=== PATIENT | female | born 1995 | race Caucasian/White ===

== ENCOUNTER 2017-04-18 15:34 | Emergency (ER) | payer SELFPAY ==
[~2017-04-18] VITALS: Ht 170.2 cm; Wt 78.5 kg
[2017-04-18 15:55] VITALS: BP 111/70
[2017-04-18] MEDS ORDERED: Meclizine 25mg tab ORAL PRN (16:30)
--- NOTE | 2017-04-18 16:36 | Emergency Room Report ---
History of Present Illness General Chief Complaint: Headache Source: Patient Present Illness HPI 22-year-old female presents to the emergency department complaining of 6/10 in severity frontal headache and increase pressure with nasal congestion. Patient also reports chills, sore throat, intermittent dry cough and fatigue x3 days. Patient states that she is up-to-date with vaccinations a denies ill contacts. Patient also reports that she was worried today as on 2 occasions she's had an episode of dizziness which she describes as the room spinning around her that lasted several seconds. Patient states it was right after playing basketball, and after standing up while on the bus riding home. Patient denies nausea, vomiting, history of headaches, weakness, recent head trauma, tinnitus. Patient does report some right-sided ear pain and states she feels as though she needs to pop her ears. she also reports increased urinary frequency especially at nighttime denies hematuria, dysuria, or . Pt. states with the exception of basketball practice today, she has been attempting to rest and stay well hydrated. Denies rashes, abdominal pain. Denies CP, Palpitations, LOC, AMS, dizziness, Changes in Vision, Sensation, paresthesias, or a sudden severe headache. Allergies: Coded Allergies: No Known Allergies (Unverified , 04/18/17) Patient History Past Medical History: see triage record Past Surgical History: none Pertinent Family History: none Last Menstrual Period: 04/09/17 Now: No : 0 Immunizations: UTD Reviewed Nursing Documentation: PMH: Agreed, PSxH: Agreed Nursing Documentation-PMH Past Medical History: No Stated History Review of Systems All Other Systems: negative except mentioned in HPI Physical Exam Vital Signs Date Time Temp Pulse Resp B/P (MAP) Pulse Ox O2 Delivery O2 Flow Rate FiO2 04/18/17 15:28 97.9 60 18 111/70 99 Room Air Sp02 EP Interpretation: reviewed, normal General Appearance: no apparent distress, alert, GCS 15, non-toxic Head: normocephalic, atraumatic Eyes: bilateral eye normal inspection, bilateral eye PERRL ENT: hearing grossly normal, normal pharynx, no angioedema, normal voice, TMs + canals normal, uvula midline, nasal congestion - TTP to frontal sinus percussion, pharyngeal erythema, other - no tonsillar exudates Neck: full range of motion, no meningismus, supple/symm/no masses Respiratory: chest non-tender, lungs clear, normal breath sounds, speaking full sentences Cardiovascular #1: regular rate, rhythm Rectal: deferred Genitourinary: normal inspection, no CVA tenderness Musculoskeletal: back normal, gait/station normal, normal range of motion, non- tender Neurologic: alert, oriented x3, responsive, motor strength/tone normal, sensory intact, cerebellar normal, normal gait, speech normal, other - unable to illicit nysgtagmus on PE, and sacha-hallpike maneuver, negative hoffmans sign, negative rhomberg test Psychiatric: judgement/insight normal, memory normal, mood/affect normal Skin: normal color, no rash, warm/dry, well hydrated Lymphatic: no adenopathy Medical Decision Making PA Attestation Dr. Fraga is my supervising Physician whom patient management has been discussed with. Diagnostic Impression: Primary Impression: Positional vertigo Qualified Codes: H81.13 - Benign paroxysmal vertigo, bilateral Additional Impressions: Acute viral syndrome Sinus congestion ER Course 22-year-old female presents to the emergency department complaining of 6/10 in severity frontal headache and increase pressure with nasal congestion. Patient also reports chills, sore throat, intermittent dry cough and fatigue x3 days. Patient states that she is up-to-date with vaccinations a denies ill contacts. Patient also reports that she was worried today as on 2 occasions she's had an episode of dizziness which she describes as the room spinning around her that lasted several seconds. Patient states it was right after playing basketball, and after standing up while on the bus riding home. Patient denies nausea, vomiting, history of headaches, weakness, recent head trauma, tinnitus. Patient does report some right-sided ear pain and states she feels as though she needs to pop her ears. she also reports increased urinary frequency especially at nighttime denies hematuria, dysuria, or . Pt. states with the exception of basketball practice today, she has been attempting to rest and stay well hydrated. Denies rashes, abdominal pain. Denies CP, Palpitations, LOC, AMS, dizziness, Changes in Vision, Sensation, paresthesias, or a sudden severe headache. Ddx considered but are not limited to URI, pneumonia, PE, strep pharyngitis, meningitis, labrynithitis, BPPV, cranial mass. just to name a few. Vital signs: Pt. is afebrile, the remaining VS are WNL H&PE are most consistent with URI- no meningeal signs, oropharynx is not involved, no evidence of bacterial infection at this time. - no nystagmus with sacha-hallpike, does not induce vertigo, however after sitting pt. back up she had approximately 10 seconds of vertigo which resolved. no focal neurological deficits on PE. ORDERS: none required at this time, the diagnosis is clinical ED INTERVENTIONS: -Meclizine PO --PT. EDUCATION: Discussed antibiotic resistance with inappropriate prescribing of antibiotics for viral illnesses. Discussed signs and symptoms to indicate viral illness versus bacterial illness. Pt. is given strict ED precautions to return to the ED with worsening or new symptoms, otherwise follow up in 3-5 days with her PMD. DISCHARGE: At this time pt. is stable for d/c to home. Will provide printed patient care instructions, and any necessary prescriptions. Care plan and follow up instructions have been discussed with the patient prior to discharge. Labs Test 04/18/17 16:34 Urine Color Pale yellow Urine Appearance Clear Urine pH 5 (4.5-8.0) Urine Specific [place] 1.015 (1.005-1.035) Urine Protein Negative (NEGATIVE) Urine Glucose (UA) Negative (NEGATIVE) Urine Ketones Negative (NEGATIVE) Urine Occult Blood Negative (NEGATIVE) Urine Nitrite Negative (NEGATIVE) Urine Bilirubin Negative (NEGATIVE) Urine Urobilinogen Normal MG/DL (0.0-1.0) Urine Leukocyte Esterase Negative (NEGATIVE) Urine HCG, Qualitative Negative Last Vital Signs Date Time Temp Pulse Resp B/P (MAP) Pulse Ox O2 Delivery O2 Flow Rate FiO2 04/18/17 15:55 97.9 18 111/70 99 Room Air 04/18/17 15:28 60 Disposition: HOME, SELF-CARE Condition: Stable Scripts Pseudoephedrine Hcl* (NEXAFED*) 30 Mg Tablet 30 MG ORAL Q6H Y for congestion, #10 TAB Prov: Annalise Givens.AAbimbola 04/18/17 Acetaminophen* (TYLENOL EXTRA STRENGTH*) 500 Mg Tablet 500 MG ORAL Q6H Y for Mild Pain/Temp > 100.5, #20 TAB 0 Refills Prov: Annalise Givens.AAbimbola 04/18/17 Meclizine Hcl* (MECLIZINE*) 25 Mg Tablet 25 MG ORAL THREE TIMES A DAY, #12 TAB Prov: Annalise Givens 04/18/17 Patient Instructions: Upper Respiratory Infection, Adult, [id number], Vertigo , [id number] Additional Instructions: Take medications as directed. Follow up with a Primary Care Provider in 3-5 days, even if your symptoms have resolved. --Please review list of primary care clinics, if you do not already have a primary care provider Return sooner to ED if new symptoms occur, or current symptoms become worse. - Please note that this Emergency Department Report was dictated using [email or web address] receiving clerk technology software, occasionally this can lead to erroneous entry secondary to interpretation by the dictation equipment. Annalise Givens Apr 18, 2017 16:36
[2017-04-18 16:55] LABS: APPEARANCE,URINE CLEAR; KETONES,URINE NEGATIVE (NEGATIVE); LEUKOCYTE ESTERASE ,URINE NEGATIVE (NEGATIVE); NITRITE,URINE NEGATIVE (NEGATIVE); PH,URINE 5 (4.5-8.0); PROTEIN,URINE NEGATIVE (NEGATIVE); UROBILINOGEN,URINE NORMAL MG/DL (0.0-1.0)
[2017-04-18] MEDS ORDERED: TYLENOL EXTRA500 MG ORAL (17:36)
[2017-04-18] MEDS ORDERED: MECLIZINE HCL25 MG ORAL (17:36)
[2017-04-18] MEDS ORDERED: NEXAFED30 MG ORAL (17:36)
[2017-04-18 17:50] VITALS: BP 120/77
== END 2017-04-18 17:50 | disposition home or self-care (01) ==
LOC: EDBD 15:34 → EMR 16:10
DX: R42 Dizziness and giddiness (principal); B34.9 Viral infection, unspecified; R09.81 Nasal congestion; R51 Headache
CPT/HCPCS: 81003; 81025; 99284

== ENCOUNTER 2017-06-21 03:14 | Emergency (ER) | payer OTHER ==
[~2017-06-21] VITALS: Ht 170.2 cm; Wt 77.1 kg
[~2017-06-21 03:14] MED LIST: MECLIZINE HCL25 MG ORAL; NEXAFED30 MG ORAL; TYLENOL EXTRA500 MG ORAL
[2017-06-21 03:52] LABS: APPEARANCE,URINE CLEAR; KETONES,URINE NEGATIVE (NEGATIVE); LEUKOCYTE ESTERASE ,URINE 1+ (NEGATIVE); NITRITE,URINE NEGATIVE (NEGATIVE); PH,URINE 6.5 (4.5-8.0); PROTEIN,URINE NEGATIVE (NEGATIVE); UROBILINOGEN,URINE NORMAL MG/DL (0.0-1.0)
[2017-06-21] MEDS: Aspirin Baby 81mg ORAL ONE (03:55)
[2017-06-21 04:03] VITALS: BP 111/72
[2017-06-21 04:05] LABS: BASOPHILS % (AUTO) 0.5 % (0.0-2.0); LYMPHOCYTES % (AUTO) 22.2 % (20.0-45.0); MEAN CORPUSCULAR HEMOGLOBIN 29.6 PG (27.0-31.0); MEAN CORPUSCULAR HGB CONC 33.4 G/DL (32.0-36.0); MEAN CORPUSCULAR VOLUME 89 FL (80-99); MEAN PLATELET VOLUME 8.1 FL (6.5-10.1); MONOCYTES % (AUTO) 6.4 % (1.0-10.0); NEUTROPHILS % (AUTO) 69.9 % (45.0-75.0); PLATELET COUNT 271 K/UL (150-450); RED BLOOD COUNT 4.43 M/UL (4.20-5.40); RED CELL DISTRIBUTION WIDTH 10.3 % (11.6-14.8); WHITE BLOOD COUNT 7.9 K/UL (4.8-10.8)
[2017-06-21 04:05] LABS: BACTERIA,URINE FEW /HPF; RBC,URINE 0-2 /HPF (0 - 2); SQUAMOUS EPITHELIAL CELL,UR MANY /LPF (NONE/OCC); WBC,URINE 0-2 /HPF (0 - 2)
[2017-06-21] MEDS: Ketorolac 30mg Inj IV ONE (04:08)
--- NOTE | 2017-06-21 04:08 | Emergency Room Report ---
History of Present Illness General Chief Complaint: Chest Pain Source: Patient, EMS Present Illness HPI This is a 22-year-old female with no past medical history. She presents with chief complaint of chest pain. Onset was around 7 PM after she came home from a friend's house. Complaining of some pressure-like pain. Went to sleep and woke up at 10. Now is sharp in nature. Localized to the left upper chest. Worse with movement. Worse with deep breath. Now radiate to the right side as EKG was done. Pain is 7/10. No nausea no vomiting. No fever or chills. No diaphoresis. No exertional component. Allergies: Coded Allergies: No Known Allergies (Unverified , 04/18/17) Patient History Past Medical History: none, see triage record, old chart reviewed Past Surgical History: none Pertinent Family History: none Social History: Denies: smoking Now: No Immunizations: other Reviewed Nursing Documentation: PMH: Agreed, PSxH: Agreed Review of Systems Eye: Denies: eye pain, blurred vision ENT: Denies: ear pain, nose congestion, throat swelling Respiratory: Denies: cough, shortness of breath Cardiovascular: Reports: chest pain, Denies: palpitations Gastrointestinal: Denies: abdominal pain, diarrhea, nausea, vomiting Musculoskeletal: Denies: back pain, joint pain Skin: Denies: rash Neurological: Denies: headache, numbness Endocrine: Denies: increased thirst, increased urine Hematologic/Lymphatic: Denies: easy bruising All Other Systems: negative except mentioned in HPI Physical Exam Vital Signs Date Time Temp Pulse Resp B/P (MAP) Pulse Ox O2 Delivery O2 Flow Rate FiO2 06/21/17 03:19 98.4 71 17 117/70 06/21/17 04:03 Room Air 06/21/17 04:03 99 vitals normal Sp02 EP Interpretation: reviewed, normal General Appearance: well appearing, no apparent distress, alert Head: normocephalic, atraumatic Eyes: bilateral eye PERRL, bilateral eye EOMI ENT: hearing grossly normal, normal pharynx Neck: full range of motion, supple, no meningismus Respiratory: chest non-tender, lungs clear, normal breath sounds Cardiovascular #1: regular rate, rhythm, no murmur Gastrointestinal: normal bowel sounds, non tender, no mass, no organomegaly, no bruit, non-distended Musculoskeletal: back normal, gait/station normal, normal range of motion Psychiatric: mood/affect normal Skin: warm/dry Medical Decision Making Diagnostic Impression: Primary Impression: Chest pain Qualified Codes: R07.9 - Chest pain, unspecified ER Course She presents with atypical chest pain. She does tell me that she argument with her boyfriend and they're no longer talking. No evidence of ACS, PE, dissection to name a few. We'll discharge home. Lab Results Impression labs normal EKG Diagnostic Results Rate: normal Rhythm: NSR ST Segments: no acute changes ASA given to the pt in ED: Yes Rhythm Strip Diag. Results Rhythm Strip Time: 04:07 EP Interpretation: yes Rate: 80 Rhythm: NSR, no PVC's, no ectopy Chest X-Ray Diagnostic Results Chest X-Ray Diagnostic Results : Chest X-Ray Ordered: Yes # of Views/Limited/Complete: 1 View Indication: Chest Pain EP Interpretation: Yes Interpretation: no consolidation, no effusion, no pneumothorax, no acute cardiopulmonary disease Impression: No acute disease Electronically Signed by: Wilbert Stewart MD Last Vital Signs Date Time Temp Pulse Resp B/P (MAP) Pulse Ox O2 Delivery O2 Flow Rate FiO2 06/21/17 04:03 98.4 76 18 111/72 99 Room Air Status: improved Disposition: HOME, SELF-CARE Condition: Stable Scripts Ibuprofen* (MOTRIN*) 600 Mg Tablet 600 MG ORAL Q6H Y for For Pain, #30 TAB Prov: WILBERT STEWART M.D. 06/21/17 Patient Instructions: Nonspecific Chest Pain Additional Instructions: Followup with your DrAbimbola 7 days. Return if symptom worsen. WILBERT STEWATR M.D. Jun 21, 2017 04:08
[2017-06-21 04:22] LABS: ANION GAP 8 mmol/L (5-15); CALCIUM 9.5 MG/DL (8.5-10.1); CARBON DIOXIDE 26 MMOL/L (21-32); CHLORIDE 106 MMOL/L (98-107); CREATININE 0.7 MG/DL (0.55-1.30); GLOMERULAR FILTRATION RATE > 60 mL/min (>60); POTASSIUM 4.3 MMOL/L (3.5-5.1); SODIUM 140 MMOL/L (136-145)
[2017-06-21 04:36] LABS: ALANINE AMINOTRANSFERASE 17 U/L (12-78); ALBUMIN/GLOBULIN RATIO 1.2 (1.0-2.7); ASPARTATE AMINO TRANSFERASE 18 U/L (15-37); CKMB < 0.5 NG/ML (0.0-3.6); TOTAL PROTEIN 7.4 G/DL (6.4-8.2)
[2017-06-21] MEDS ORDERED: IBUPROFEN600 MG ORAL (05:01)
[2017-06-21 05:12] VITALS: BP 103/63
--- NOTE | 2017-06-21 13:46 | Diagnostic Imaging Report ---
Indication: Chest pain Technique: One view of the chest Comparison: none Findings: Lungs and pleural spaces are clear. Heart size is normal. Impression: No acute process
--- NOTE | 2017-06-22 18:25 | Cardiology Report ---
APPROVED REPORT EKG Measurement Heart [id number] Normal sinus rhythm Rightward axis ST elevation, probably due to early repolarization Borderline ECG
== END 2017-06-21 05:15 | disposition home or self-care (01) ==
LOC: EDBD 03:14 → EMR 03:30
DX: R07.89 Other chest pain (principal)
CPT/HCPCS: 36415; 71010; 80053; 81003; 81025; 82550; 82553; 84484; 85025; 85379; 93005; 96374; 99284; J1885

== ENCOUNTER 2017-08-29 14:35 | Emergency (ER) | payer SELFPAY ==
[~2017-08-29] VITALS: Ht 152.4 cm; Wt 54.4 kg
[~2017-08-29 14:35] MED LIST changes: +IBUPROFEN600 MG ORAL
[2017-08-29 14:38] VITALS: BP 104/70
[2017-08-29 16:15] LABS: BASOPHILS % (AUTO) 0.6 % (0.0-2.0); BILIRUBIN, URINE NEGATIVE (NEGATIVE); EOSINOPHILS % (AUTO) 0.5 % (0.0-3.0); GLUCOSE, URINE (UA) NEGATIVE (NEGATIVE); HEMOGLOBIN 14.5 G/DL (12.0-16.0); KETONES,URINE 2+ (NEGATIVE); LEUKOCYTE ESTERASE ,URINE 3+ (NEGATIVE); LYMPHOCYTES % (AUTO) 9.4 % (20.0-45.0); MEAN CORPUSCULAR VOLUME 88 FL (80-99); MONOCYTES % (AUTO) 9.6 % (1.0-10.0); NEUTROPHILS % (AUTO) 79.9 % (45.0-75.0); NITRITE,URINE NEGATIVE (NEGATIVE); PH,URINE 5 (4.5-8.0); PLATELET COUNT 208 K/UL (150-450); PROTEIN,URINE 1+ (NEGATIVE); RED BLOOD COUNT 4.67 M/UL (4.20-5.40); RED CELL DISTRIBUTION WIDTH 11.4 % (11.6-14.8); UROBILINOGEN,URINE NORMAL MG/DL (0.0-1.0); WHITE BLOOD COUNT 6.2 K/UL (4.8-10.8)
[2017-08-29 16:17] LABS: APPEARANCE,URINE SLIGHTLY CLOUDY; COLOR,URINE YELLOW
--- NOTE | 2017-08-29 16:25 | Emergency Room Report ---
History of Present Illness General Chief Complaint: Abdominal Pain Source: Patient Present Illness HPI 22-year-old female presents to the emergency department complaining of 7/10 in severity right upper quadrant abdominal pain since yesterday with associated nausea and vomiting. Patient reports multiple episodes of vomiting to the point that she is now dizzy. Patient denies blood in the vomit she denies constipation or diarrhea. Patient denies . She reports chills but denies fevers. Patient states she was recently treated for PID however she was unable to finish all of her antibiotics she was only able to take 4 days because she lost the remaining prescriptions. Patient denies right lower abdominal tenderness however she states on occasion her right upper part her pain will radiate down into the right lower portion of the abdomen. Denies past abdominal surgeries. She reports that her pain is exacerbated upon eating or standing upright.Denies CP, Palpitations, LOC, AMS, dizziness, Changes in Vision, Sensation, paresthesias, or a sudden severe headache. Allergies: Coded Allergies: No Known Allergies (Unverified , 04/18/17) Patient History Past Medical History: see triage record Past Surgical History: none Pertinent Family History: none Now: No Reviewed Nursing Documentation: PMH: Agreed, PSxH: Agreed Nursing Documentation-PMH Past Medical History: No Stated History Review of Systems All Other Systems: negative except mentioned in HPI Physical Exam Vital Signs Date Time Temp Pulse Resp B/P (MAP) Pulse Ox O2 Delivery O2 Flow Rate FiO2 08/29/17 14:31 98.4 12 16 103/70 08/29/17 14:38 98 Room Air Sp02 EP Interpretation: reviewed, normal General Appearance: alert, GCS 15, non-toxic, moderate distress Head: normocephalic, atraumatic Eyes: bilateral eye normal inspection, bilateral eye PERRL ENT: hearing grossly normal, normal voice Neck: full range of motion Respiratory: lungs clear, normal breath sounds, speaking full sentences Cardiovascular #1: regular rate, rhythm Gastrointestinal: normal bowel sounds, soft, non-distended, no guarding, tenderness - RUQ TTP Rectal: deferred Genitourinary: normal inspection, no CVA tenderness Musculoskeletal: back normal, gait/station normal, normal range of motion, non- tender Neurologic: alert, oriented x3, responsive, motor strength/tone normal, sensory intact, speech normal, grossly normal Psychiatric: judgement/insight normal Skin: normal color, no rash, warm/dry, well hydrated Lymphatic: no adenopathy Medical Decision Making PA Attestation Dr. Vines is my supervising Physician whom patient management has been discussed with. Diagnostic Impression: Primary Impression: Abdominal pain Qualified Codes: R10.11 - Right upper quadrant pain Additional Impressions: Renal stones Vomiting ER Course 22-year-old female presents to the emergency department complaining of 7/10 in severity right upper quadrant abdominal pain since yesterday with associated nausea and vomiting. Patient reports multiple episodes of vomiting to the point that she is now dizzy. Patient denies blood in the vomit she denies constipation or diarrhea. Patient denies . She reports chills but denies fevers. Patient states she was recently treated for PID however she was unable to finish all of her antibiotics she was only able to take 4 days because she lost the remaining prescriptions. Patient denies right lower abdominal tenderness however she states on occasion her right upper part her pain will radiate down into the right lower portion of the abdomen. Denies past abdominal surgeries. She reports that her pain is exacerbated upon eating or standing upright.Denies CP, Palpitations, LOC, AMS, dizziness, Changes in Vision, Sensation, paresthesias, or a sudden severe headache. Ddx considered but are not limited to Diverticulitis, acute appy, diarrhea,UC, PUD, GE, pancreatitis, gallstone Vital signs: are WNL, pt. is afebrile H&PE are most consistent with RUQ abdominal pain and mild dehydration. She was placed onto a gurney she is given IV fluids but was drawn for evaluation she is not currently vomiting am awaiting prescribing Zofran until done. ORDERS: -CBC, CMP, lipase, UA- all unremarkable -Abdominal ultrasound- Negative ED INTERVENTIONS: Fluids, and GI cocktail, + Pain meds. DISCHARGE: At this time pt. is stable for d/c to home. Will provide printed patient care instructions, and any necessary prescriptions. Care plan and follow up instructions have been discussed with the patient prior to discharge. Labs Test 08/29/17 15:51 White Blood Count 6.2 K/UL (4.8-10.8) Red Blood Count 4.67 M/UL (4.20-5.40) Hemoglobin 14.5 G/DL (12.0-16.0) Hematocrit 41.0 % (37.0-47.0) Mean Corpuscular Volume 88 FL (80-99) Mean Corpuscular Hemoglobin 31.1 PG (27.0-31.0) Mean Corpuscular Hemoglobin Concent 35.5 G/DL (32.0-36.0) Red Cell Distribution Width 11.4 % (11.6-14.8) Platelet Count 208 K/UL (150-450) Mean Platelet Volume 8.2 FL (6.5-10.1) Neutrophils (%) (Auto) 79.9 % (45.0-75.0) Lymphocytes (%) (Auto) 9.4 % (20.0-45.0) Monocytes (%) (Auto) 9.6 % (1.0-10.0) Eosinophils (%) (Auto) 0.5 % (0.0-3.0) Basophils (%) (Auto) 0.6 % (0.0-2.0) Urine Color Yellow Urine Appearance Slightly cloudy Urine pH 5 (4.5-8.0) Urine Specific [place] 1.025 (1.005-1.035) Urine Protein 1+ (NEGATIVE) Urine Glucose (UA) Negative (NEGATIVE) Urine Ketones 2+ (NEGATIVE) Urine Occult Blood Negative (NEGATIVE) Urine Nitrite Negative (NEGATIVE) Urine Bilirubin Negative (NEGATIVE) Urine Urobilinogen Normal MG/DL (0.0-1.0) Urine Leukocyte Esterase 3+ (NEGATIVE) Urine RBC 0-2 /HPF (0 - 2) Urine WBC 2-4 /HPF (0 - 2) Urine Squamous Epithelial Cells Few /LPF (NONE/OCC) Urine Bacteria Few /HPF (NONE) Sodium Level 138 MMOL/L (136-145) Potassium Level 4.0 MMOL/L (3.5-5.1) Chloride Level 104 MMOL/L (98-107) Carbon Dioxide Level 27 MMOL/L (21-32) Anion Gap 7 mmol/L (5-15) Blood Urea Nitrogen 16 mg/dL (7-18) Creatinine 0.7 MG/DL (0.55-1.30) Estimat Glomerular Filtration Rate > 60 mL/min (>60) Glucose Level 74 MG/DL (74-106) Calcium Level 9.6 MG/DL (8.5-10.1) Total Bilirubin 0.9 MG/DL (0.2-1.0) Aspartate Amino Transf (AST/SGOT) 12 U/L (15-37) Alanine Aminotransferase (ALT/SGPT) 15 U/L (12-78) Alkaline Phosphatase 54 U/L (46-116) Total Protein 7.4 G/DL (6.4-8.2) Albumin 3.9 G/DL (3.4-5.0) Globulin 3.5 g/dL Albumin/Globulin Ratio 1.1 (1.0-2.7) Lipase 84 U/L (73-393) CT/MRI/US Diagnostic Results CT/MRI/US Diagnostic Results : Imaging Test Ordered: Abdominal US Impression "Findings: Gallbladder is unremarkable, without stones, wall thickening, nor pericholecystic fluid. Sonographic Arora's sign is negative. Common bile duct measures 4 mm in diameter. No intrahepatic biliary ductal dilatation. Liver demonstrates coarsened echogenicity Portal vein and hepatic veins are patent. Pancreas is unremarkable. Spleen is unremarkable. Left kidney measures 10 cm in length. Right kidney measures 11.3 cm length. Both kidneys demonstrate normal echogenicity. Right kidney demonstrates a 17 mm upper pole cyst. Left kidney demonstrates questionable hyperechoic focus in the lower pole no hydronephrosis . Non-aneurysmal abdominal aorta . Images of the right lower quadrant failed to demonstrate the appendix, either normal or abnormal."-Per official radiology report- Please see report for specific details. Last Vital Signs Date Time Temp Pulse Resp B/P (MAP) Pulse Ox O2 Delivery O2 Flow Rate FiO2 08/29/17 14:38 98.4 76 16 104/70 98 Room Air Disposition: HOME, SELF-CARE Condition: Stable Scripts Ranitidine Hcl* (ZANTAC*) 150 Mg Tablet 150 MG ORAL TWICE A DAY for 7 Days, #14 TAB Prov: Annalise Givens P.A. 08/29/17 Tramadol Hcl* (ULTRAM*) 50 Mg Tablet 50 MG ORAL Q6H Y for For Pain, #9 TAB 0 Refills Prov: Annalise Givens P.A. 08/29/17 Tamsulosin Hcl (TAMSULOSIN HCL*) 0.4 Mg Cap.er.24h 0.4 MG ORAL BEDTIME for 3 Days, #3 CAP Prov: Annalise Givens P.A. 08/29/17 Ondansetron Odt* (ZOFRAN ODT*) 4 Mg Tab.rapdis 4 MG ORAL Q6H Y for Nausea & Vomiting, #20 TAB Prov: Annalise Givens 08/29/17 Departure Forms: Return to School Return to School On: Aug 30, 2017 School Release Restrictions: None Return to Full Activity: Aug 30, 2017 Patient Instructions: Abdominal Pain, Adult, Kidney Stones Additional Instructions: Take medications as directed. Follow up with a Primary Care Provider in 3-5 days, even if your symptoms have resolved. --Please review list of primary care clinics, if you do not already have a primary care provider Return sooner to ED if new symptoms occur, or current symptoms become worse. - Please note that this Emergency Department Report was dictated using [employer] type artist technology software, occasionally this can lead to erroneous entry secondary to interpretation by the dictation equipment. Annalise Givens Aug 29, 2017 16:24
[2017-08-29 16:28] LABS: ANION GAP 7 mmol/L (5-15); BLOOD UREA NITROGEN 16 mg/dL (7-18); CALCIUM 9.6 MG/DL (8.5-10.1); CARBON DIOXIDE 27 MMOL/L (21-32); CHLORIDE 104 MMOL/L (98-107); CREATININE 0.7 MG/DL (0.55-1.30); SODIUM 138 MMOL/L (136-145)
[2017-08-29 16:32] LABS: ALANINE AMINOTRANSFERASE 15 U/L (12-78); ALBUMIN 3.9 G/DL (3.4-5.0); ALBUMIN/GLOBULIN RATIO 1.1 (1.0-2.7); ALKALINE PHOSPHATASE 54 U/L (46-116); ASPARTATE AMINO TRANSFERASE 12 U/L (15-37); BILIRUBIN,TOTAL 0.9 MG/DL (0.2-1.0)
[2017-08-29] MEDS ORDERED: Lidocaine 2% Visc 15ml soln ORAL ONE (17:15)
[2017-08-29] MEDS ORDERED: Mylanta II UD 30ml ORAL ONE (17:15)
[2017-08-29 17:28] VITALS: BP 109/70
[2017-08-29 19:06] VITALS: BP 118/74
[2017-08-29] MEDS ORDERED: TAMSULOSIN HCL0.4 MG ORAL (20:36)
[2017-08-29] MEDS ORDERED: TRAMADOL HCL50 MG ORAL (20:36)
[2017-08-29] MEDS ORDERED: ZANTAC150 MG ORAL (20:36)
[2017-08-29] MEDS ORDERED: ZOFRAN ODT4 MG ORAL (20:36)
[2017-08-29 20:59] VITALS: BP 93/57
--- NOTE | 2017-08-30 09:10 | Diagnostic Imaging Report ---
Indication: Right upper quadrant right lower quadrant pain. Technique: Teixeira-scale and duplex images of the upper abdomen were obtained. Graded compression images of the right lower quadrant Comparison: none Findings: Gallbladder is unremarkable, without stones, wall thickening, nor pericholecystic fluid. Sonographic Arora's sign is negative. Common bile duct measures 4 mm in diameter. No intrahepatic biliary ductal dilatation. Liver demonstrates coarsened echogenicity Portal vein and hepatic veins are patent. Pancreas is unremarkable. Spleen is unremarkable. Left kidney measures 10 cm in length. Right kidney measures 11.3 cm length. Both kidneys demonstrate normal echogenicity. Right kidney demonstrates a 17 mm upper pole cyst. Left kidney demonstrates questionable hyperechoic focus in the lower pole no hydronephrosis . Non-aneurysmal abdominal aorta . Images of the right lower quadrant failed to demonstrate the appendix, either normal or abnormal Impression: Negative for gallstones or dilated ducts Coarsened hepatic echogenicity, could indicate hepatocellular disease Incidental finding right renal cyst Equivocal nonobstructing left lower pole renal calculus versus artifact Nonvisualized appendix, therefore nondiagnostic for the presence or absence of acute appendicitis This agrees with the preliminary interpretation provided overnight by [facility] service.
== END 2017-08-29 21:02 | disposition home or self-care (01) ==
LOC: EDBD 14:35 → EDSEX 14:35 → EMR 17:36
DX: R10.11 Right upper quadrant pain (principal); N28.1 Cyst of kidney, acquired; N20.0 Calculus of kidney; R11.10 Vomiting, unspecified
CPT/HCPCS: 36415; 76700; 80053; 81003; 83690; 85025; 96361; 96374; 99284; J2405